=== PATIENT | male | born 1990 | race Hispanic/Latino ===

== ENCOUNTER 2021-01-23 13:34 | Outpatient (CLI) | payer OTHER ==
[2021-01-23 15:44] LABS: Bilirubin Neg (Negative); Blood, Urine Negative (Negative); Clarity Slightly Cloudy (Clear); Glucose, Urine (Dipstick) Normal (Negative); Ketone, Urine Negative (Negative); Leukocyte Negative (Negative); Nitrite Negative (Negative); Protein, Urine (Dipstick) Negative (Neg-Trace); Specific Gravity, Urine 1.015 (1.002-1.036); Urobilinogen Normal mg/dL (Less than 2)
[2021-01-23 15:53] LABS: Bacteria/HPF Rare-Few HPF (None Seen); Calcium Oxalate Crystals Rare HPF (None Seen); RBC/HPF 0-3 HPF (0-3); Squamous Epithelial 0-3 HPF (0-3); WBC/HPF 0-3 HPF (0-3)
[2021-01-23 15:54] LABS: Mucous/LPF Rare LPF (<2+)
[2021-01-24 12:19] LABS: SARS-CoV-2 PCR by NAA Not Detected (NotDetected)
== END 2021-01-23 13:35 | disposition home or self-care (01) ==
LOC: LABBT 13:34
PROVIDERS: ATTEND Urology
DX: Z01.812 Encounter for preprocedural laboratory examination (principal); N20.0 Calculus of kidney; Z20.822 Contact with and (suspected) exposure to COVID-19
CPT/HCPCS: 81001; 87086; U0003; U0005

== ENCOUNTER 2021-01-25 05:51 | Day surgery (SDC) | payer OTHER ==
[2021-01-23 12:29] VITALS: BMI 31.3
[2021-01-25] MEDS ORDERED: Levofloxacin 500 mg/D5W 100 ml Premix Bag ONE (06:42)
[2021-01-25] MEDS ORDERED: Fentanyl 100 MCG/2 ML VIAL ONE (07:08)
[2021-01-25] MEDS ORDERED: Midazolam HCl 2 mg/2 ml Vial ONE (07:08)
[2021-01-25] MEDS ORDERED: Iothalamate Meglumine 60% 50 ML VIAL FS ONE (07:08)
[2021-01-25] MEDS ORDERED: Ondansetron PF 4 MG/2 ML Vial ONE (07:39)
[2021-01-25] MEDS ORDERED: Lidocaine 1% PF 5 ML VIAL ONE (07:39)
[2021-01-25] MEDS ORDERED: PROPOFOL 200 MG/20 ML VIAL ONE (07:39)
[2021-01-25] MEDS ORDERED: Oxybutynin 5 MG TAB ONE (08:37)
[2021-01-25] MEDS ORDERED: Ketorolac Tromethamine 30 MG/ML VIAL ONE (08:37)
[2021-01-25] MEDS ORDERED: Phenazopyridine HCl 100 MG TAB ONE (08:37)
== END 2021-01-25 10:06 | disposition home or self-care (01) ==
LOC: SDC 05:51
PROVIDERS: ATTEND Urology
PROC: 0T778DZ Dilation of Left Ureter with Intraluminal Device, Via Natural or Artificial Opening Endoscopic (ICD-10-PCS; principal; 2021-01-25)
PROC: 0TC48ZZ Extirpation of Matter from Left Kidney Pelvis, Via Natural or Artificial Opening Endoscopic (ICD-10-PCS; principal; 2021-01-25)
DX: N20.0 Calculus of kidney (principal); H91.90 Unspecified hearing loss, unspecified ear
CPT/HCPCS: 74420; 82365; 88300; C2617; J1885; J1956; J2250; J2405; J2704; J3010; Q9961-U8

== ENCOUNTER 2021-02-28 09:48 | Outpatient (CLI) | payer OTHER | END 2021-02-28 09:49 | disposition home or self-care (01) | LOC: BICULT 09:48 | PROVIDERS: ATTEND Urology | DX: N20.0 Calculus of kidney (principal) | CPT/HCPCS: 76770 ==